=== PATIENT | female | born 1955 | race African-American/Black ===

== ENCOUNTER 2016-11-21 19:17 | Observation (INO) | payer BC ==
--- NOTE | ~2016-11-21 | HP ---
History And Physical [place] [address] [facility] [place]. [address] NAME: JANICE VARGAS : 57 STATUS : ADM Susana PAT#: [id number] AGE: 61 ADM/REG DATE : 11/21/16 MR#: [id number] REPORT SERV DATE: 11/22/16 DICTATED BY: MAK CALIX DATE: 11/22/16 REPORT STATUS : Draft TRANSCRIBED BY: MODL DATE: 11/22/16 DATE OF ADMISSION: 11/21/2016 WEAPONS SPECIALIST: Michael Ni M.D. CHIEF COMPLAINT: Atypical chest pain. HISTORY OF PRESENT ILLNESS: A very pleasant, 61-year-old, black female with no known history of CAD who underwent cardiac catheterization in [address] De La Rosa with an essentially normal study presents to our facility with atypical chest pain. She reports that on 11/20 around 2200 hours, she thought she had indigestion. She became nauseous, weak. She checked her blood sugar, was reportedly 120. She then describes "shock sensation" through her left chest with associated nausea, diaphoresis, dizziness, and belching. She denies any shortness of breath. On 11/21, she was out all day with her daughter running errands and the chest discomfort returned and/or persisted. At its most intense, she rated it an 8/10. At time of interview in the [facility], she rates it a 3/10. Her symptoms were improved with aspirin and the application of Nitrol paste in the emergency room. She did try Nexium at home with no improvement in her symptoms. The patient confirms a personal history of a stroke in 2009 with short-term memory loss and multiple TIAs. Denies history of NC, DVT or pulmonary embolus. The patient denies any recent fever or chills. No palpitations. No syncopal episodes. Denies PND or orthopnea. PAST MEDICAL HISTORY: 1. Hypertension. 2. AODM, diet controlled. 3. BMI greater than 60. 4. Hypothyroid, on replacement. 5. Arthritis. 6. Anxiety. 7. Ongoing tobacco abuse. 8. Positive family history for early stroke. 9. History of TIA and stroke with short-term memory loss. PAST SURGICAL HISTORY: 1. x2. 2. Cholecystectomy. 3. Partial thyroidectomy secondary to goiter. SOCIAL HISTORY: She is with two children. Disabled, secondary to her arthritis, does not have an exercise routine. Smokes 5 cigarettes per day, has smoked for 40 years as much as one pack per day. Denies alcohol or illicit's. FAMILY HISTORY: Brother with a stroke at 34, of lung cancer at 47. Mother of congestive heart failure at 78. Father of a pulmonary embolus following prostate History And Physical [address] [place]. [address] NAME: JANICE VARGAS : 57 STATUS : ADM Susana PAT#: [id number] AGE: 61 ADM/REG DATE : 11/21/16 MR#: [id number] REPORT SERV DATE: 11/22/16 DICTATED BY: MAK CALIX DATE: 11/22/16 REPORT STATUS : Draft TRANSCRIBED BY: SREE DATE: 11/22/16 surgery at 88. REVIEW OF SYSTEMS: A 14-point review of systems performed, significant for HPI. No other contributory diagnoses identified. ALLERGIES: PENICILLIN, SHORTNESS OF BREATH AND HIVES. DECADRON, VAGINAL WARMTH. HOME MEDICATIONS: Albuterol p.r.n., Xanax 1 mg daily, clonidine 0.1 mg twice daily, diclofenac 75 mg twice daily, levothyroxine 150 mcg daily, lisinopril 40 mg daily, Zanaflex 4 mg three times daily. PHYSICAL EXAMINATION: VITAL SIGNS: Blood pressure 145/66, pulse 85, respirations 20, temperature 97.6, O2 saturation 96% on room air, height 5 feet 5 inches, weight 417 pounds, BMI of 69. GENERAL: Cooperative, in no apparent distress. HEENT: Pupils 2 mm, sclera nonicteric. Nares patent. Moist mucous membranes. No xanthelasma. NECK: Trachea midline, no thyromegaly. No JVD. No bruits. LYMPH: No cervical lymphadenopathy. No supraclavicular lymphadenopathy. RESPIRATORY: Unlabored respirations. Breath sounds clear bilaterally to posterior auscultation. No wheezes or rhonchi. Diminished in the bases. CARDIOVASCULAR: Regular rate. No murmur, rub or gallop appreciated. Extremities, 1+ ankle edema. Pulses 2+ bilaterally. ABDOMEN: Obese, soft, nontender, nondistended, normal bowel sounds auscultated throughout. No organomegaly. SKIN: Warm, dry extremities. No pallor, or cyanosis. PSYCHIATRIC: Appropriate affect. Alert, oriented x3. LABORATORY DATA: Troponin less than 0.02 x3. Potassium 4.6, BUN 9, creatinine 1.43, baseline 1.7-1.3. Glucose 105, magnesium 2.2. WBC 8.2, hemoglobin 14.1, hematocrit 43.0, platelet count 321,000. EKG, sinus rhythm. Echo 2012: EF 60%. MPI, 01/2010: Beau stage 1, 4 minutes, 5 METS, mild inferior ischemia, leading to cath. Cath, 02/2010 ([facility]): Normal coronaries with EF 50-55%. ASSESSMENT AND PLAN: 1. Atypical chest pain in patient with multiple risk factors. The patient will be held n.p.o. for now. Review of Dr. Ni's most recent note 06/2014 given patient's body habitus and BMI of 69. Recommendation for cardiac cath versus nuclear imaging given patient's body size. I will discuss with rounding physician. The patient will remain n.p.o. for possible arteriogram today. Further recommendations forthcoming. 2. Hypertension. Monitor blood pressure. Continue home medications. 3. Adult onset diabetes mellitus. 1800 calorie ADA diet discussed. The patient is n.p.o. History And Physical [address] [address] NAME: JANICE VARGASYCE : 57 STATUS : ADM Susana PAT#: [id number] AGE: 61 ADM/REG DATE : 11/21/16 MR#: [id number] REPORT SERV DATE: 11/22/16 DICTATED BY: MAK CALIX DATE: 11/22/16 REPORT STATUS : Draft TRANSCRIBED BY: MODL DATE: 11/22/16 for now. 4. BMI 69. Diet and exercise discussed although the patient is severely limited for exercise secondary to her size and arthritis. Water aerobics suggested. 5. Ongoing tobacco abuse. Counseled regarding cessation for cardiovascular health and well being. GABINO/SREE DANA Dominguez, CIRCULAR SAW FILER-BC / [id number] CC: DANA Dominguez, CIRCULAR SAW FILER-BC Jaret Isaacs M.D.
[2016-11-21 17:21] LABS: BASOPHILS 0.2 %; BASOPHILS ABSOLUTE 0.02 10/3/uL (0.0-0.16); EOSINOPHILS ABSOLUTE 0.65 10/3/uL (0.0-0.53); HEMOGLOBIN 14.1 g/dL (12.0-16.0); IMMATURE GRANULOCYTES 0.2 %; IMMATURE GRANULOCYTES ABSOLUTE 0.02 10/3/uL (0.0-0.11); LYMPHOCYTES 30.6 %; MANUAL DIFF NO %; MEAN CORPUS HGB CONC 32.8 g/dL (32.0-36.0); MEAN CORPUSCULAR HEMOGLOB 29.2 pg (26.0-34.0); MEAN PLATELET VOLUME 9.2 fL (9.2-13.0); MONOCYTES 8.4 %; MONOCYTES ABSOLUTE 0.69 10/3/uL (0.21-1.20); NEUTROPHILS 52.6 %; NEUTROPHILS ABSOLUTE 4.29 10/3/uL (2.02-8.40); PLATELET COUNT 321 10/3/uL (150-400); RBC DISTRIBUTION WIDTH 14.7 % (12.0-16.0); RED CELL COUNT 4.83 10/6/uL (4.0-5.6); WHITE BLOOD CELLS 8.2 10/3/uL (4.5-10.5)
[2016-11-21 17:27] LABS: INTERNATIONAL NORMAL RATI 1.1 UNITS (-); PARTIAL THROMBO TIME 29.7 SEC (22.5-37.2); PROTIME (NOT ORD) 13.7 SEC (12.0-14.5)
[2016-11-21 17:37] LABS: BUN (BLOOD UREA NITROGEN) 9 MG/DL (6-23); CALCIUM, SERUM 8.7 MG/DL (8.5-10.4); CHEST PAIN PROFILE TAT 0 Hrs 20 Mins; CHLORIDE, SERUM 101 MMOL/L (96-112); CO2 (CARBON DIOXIDE) 30 MMOL/L (24-34); CREATININE 1.43 MG/DL (0.55-1.02); GFR AFRICAN AMERICAN 46 ML/MIN (>=60); GFR NON AFRICAN AMERICAN 40 ML/MIN (>=60); GLUCOSE, SERUM 105 MG/DL (60-99); POTASSIUM, SERUM 4.6 MMOL/L (3.5-5.3); SODIUM, SERUM 138 MMOL/L (135-148); TROPONIN I <0.02 NG/ML (<0.05)
[~2016-11-21 19:17] MED LIST: ASAB PO; ASAEC PO; CAT1 PO; CELEBREX2 PO; KLONO1 PO; KLONO2 PO; KLOR-CON 1010 MEQ PO; L80 PO; LEVOTHYROXIN125 MCG PO; LOP25 PO; MAGNACET PO; NEXIUM40 PO; OXYCOD PO; PERCOCET1 TA4 PO; PLAVIX PO; PR25 PO; PRIN2.5 PO; PRIN5 PO; PROTONIX PO; PROVHFA INH; SYN.15 PO; SYN125 PO; VALIUM10 MG PO; VOLT75 PO; XANAX1 MG PO; ZANAFLEX 4 MG TA4 MG PO; ZESTRIL40 MG PO; ZOCOR20 PO
[2016-11-22 01:14] LABS: TROPONIN I <0.02 NG/ML (<0.05)
[2016-11-22 14:20] LABS: CHOL/HDL RATIO(NOT ORDER) 4.2 (0-5); CHOLESTEROL 166 MG/DL (< 200); HDL CHOLESTEROL 40 MG/DL (> 49); LDL CHOLESTEROL 104 MG/DL (< 130); NON-HDL CHOLESTEROL 126 MG/DL (< 160); TRIGLYCERIDE 110 MG/DL (< 150)
[2016-11-22 14:28] LABS: HCG SERUM QUANTITATIVE <1.0 IU/L (0-6)
[2016-11-22] MEDS ORDERED: ASAB PO (20:55)
[2016-11-22] MEDS ORDERED: LIPITOR40 PO (20:56)
[2016-11-22] MEDS ORDERED: LOP25 PO (20:56)
[2016-11-22] MEDS ORDERED: NITROQUICK0.4 MG SL (20:59)
== END 2016-11-22 21:43 | disposition home or self-care (01) ==
LOC: ER 19:17 → CDU1 19:25 → CDU2 20:46
PROVIDERS: Clinical Nurse Specialist; Emergency Medicine
DX: I25.110 Atherosclerotic heart disease of native coronary artery with unstable angina pectoris (principal); I10 Essential (primary) hypertension; E11.8 Type 2 diabetes mellitus with unspecified complications; E03.9 Hypothyroidism, unspecified; M19.90 Unspecified osteoarthritis, unspecified site; F41.9 Anxiety disorder, unspecified; Z90.49 Acquired absence of other specified parts of digestive tract; Z86.73 Personal history of transient ischemic attack (TIA), and cerebral infarction without residual deficits; Z88.0 Allergy status to penicillin; Z88.8 Allergy status to other drugs, medicaments and biological substances; Z79.899 Other long term (current) drug therapy
CPT/HCPCS: 71020; 80048; 80061; 82962; 83735; 84484; 84702; 85025; 85610; 85730; 93005; 93458; 96374; 99152; 99285; A9270-GY; C1769; C1887; C1894; G0378; J2250; J2405; J3010; Q9967